=== PATIENT | female | born 1995 | race Caucasian/White ===

== ENCOUNTER 2023-04-16 19:51 | Emergency (ER) | payer MEDICAID ==
[~2023-04-16] VITALS: Ht 165.1 cm; Wt 59.0 kg
[2023-04-16] MEDS ORDERED: LEVETIRACETAM 1000MG PREMIX 100 ML IV ONE (20:15)
[2023-04-16 20:33] LABS: BASOPHILS % 0.5 % (0.0-2.0); EOSINOPHILS % 3.4 % (0.0-5.0); HEMOGLOBIN. 10.8 g/dL (12.0-16.0); LYMPHOCYTES % 21.8 % (20.0-50.0); MEAN CORPUSCULAR HEMOGLOBIN 25.5 pg (28.0-32.0); MEAN CORPUSCULAR VOLUME 80.1 fL (81.0-99.0); MONOCYTES % 6.9 % (2.0-8.0); NEUTROPHILS % 67.4 % (40.0-76.0); PLATELET 416 x1000/uL (130-400); RED BLOOD CELL COUNT 4.25 mill/uL (4.2-5.4); RED CELL DISTRIBUTION WIDTH 18.3 % (11.6-14.6)
[2023-04-16 20:36] LABS: CHLORIDE 105 mEq/L (98-107)
[2023-04-16 20:39] LABS: HCG SCREEN NEGATIVE
[2023-04-16 20:49] LABS: ETHANOL BLOOD < 10 mg/dL
[2023-04-16] MEDS ORDERED: SODIUM CHLORIDE 0.9% 1,000 ML IV ONE (21:30)
[2023-04-16] MEDS ORDERED: ACETAMINOPHEN 325MG TABLET PO ONE ×2 (21:30→23:45)
[2023-04-16] MEDS ORDERED: POTASSIUM CHLORIDE 20MEQ TABLET SR PO NR (22:30)
[2023-04-16 22:54] LABS: CLARITY URINE CLEAR (CLEAR); COLOR URINE YELLOW (YELLOW); KETONES URINE NEGATIVE (NEGATIVE); LEUKOCYTE ESTERASE URINE NEGATIVE (NEGATIVE); NITRITE URINE NEGATIVE (NEGATIVE); OCCULT BLOOD URINE NEGATIVE (NEGATIVE); PH URINE 5.5 (4.5-8.0); PROTEIN URINE NEGATIVE (NEGATIVE); SPECIFIC GRAVITY URINE 1.005 (1.005-1.030); UROBILINOGEN URINE 0.2 E.U./dL (0.2-1.0)
[2023-04-16 23:06] LABS: *AMPHETAMINES SCREEN URINE NEGATIVE (NEGATIVE); *BARBITURATES SCREEN URINE NEGATIVE (NEGATIVE); *BENZODIAZEPINES SCREEN URINE NEGATIVE (NEGATIVE); *COCAINE SCREEN URINE NEGATIVE (NEGATIVE); CANNABINOID URINE SCREEN NEGATIVE (NEGATIVE); METHADONE URINE SCREEN NEGATIVE (NEGATIVE); OPIATES URINE SCREEN NEGATIVE (NEGATIVE); PHENCYCLIDINE URINE SCREEN NEGATIVE (NEGATIVE)
[2023-04-16 23:42] VITALS: BP 123/80
[2023-04-16] MEDS ORDERED: IBUPROFEN 400MG TABLET PO ONE (23:45)
== END 2023-04-17 ==
LOC: ER 19:51
DX: R56.9 Unspecified convulsions (principal)
CPT/HCPCS: 36415; 80053; 80305; 80320; 81003; 84703; 85025; 96361; 96365; 99284; J1953; J7030; Z7610; G0480

== ENCOUNTER 2025-07-12 15:35 | Emergency (ER) | payer MEDICAID, OTHER ==
[~2025-07-12] VITALS: Ht 165.1 cm; Wt 59.9 kg
[2025-07-12 15:42] VITALS: O2SAT 98
[2025-07-12 16:15] LABS: BASOPHILS % 0.5 % (0.0-2.0); EOSINOPHILS % 1.9 % (0.0-5.0); HEMATOCRIT. 32.7 % (36.0-48.0); HEMOGLOBIN. 10.4 g/dL (12.0-16.0); LYMPHOCYTES % 21.2 % (20.0-50.0); MEAN PLATELET VOLUME 7.3 fl (7.4-10.4); MONOCYTES % 5.9 % (2.0-8.0); NEUTROPHILS % 70.5 % (40.0-76.0); PLATELET 419 x1000/uL (130-400); RED BLOOD CELL COUNT 4.32 mill/uL (4.2-5.4); RED CELL DISTRIBUTION WIDTH 19.0 % (11.6-14.6)
[2025-07-12 16:25] LABS: CREATININE 0.8 mg/dL (0.6-1.0); UREA NITROGEN BLOOD 9 mg/dL (9-23)
[2025-07-12 16:26] LABS: B-HCG QUANTITATIVE < 1 mIU/mL (<6)
[2025-07-12 16:30] LABS: INR 1.0
[2025-07-12 16:34] LABS: HCG SCREEN NEGATIVE
[2025-07-12 21:30] VITALS: BP 123/79; PULSE 80; RESP 18; TEMP 36.4; O2SAT 99
[2025-07-12 22:53] VITALS: BP 123/79; PULSE 80; RESP 18; TEMP 36.4736
[2025-07-12] MEDS ORDERED: MORPHINE SULFATE 2 MG/ML INJ (NOT FOR IM USE) IV PRN (23:30)
[2025-07-12] MEDS ORDERED: ACETAMINOPHEN 325MG TABLET PO PRN (23:30)
[2025-07-12] MEDS ORDERED: ONDANSETRON HCL 4MG/2ML INJ IV PRN (23:30)
[2025-07-12] MEDS ORDERED: MAGNESIUM/ALUMINUM HYDROXIDE/SIMETHICONE 30ML UDC PO PRN (23:30)
[2025-07-12] MEDS ORDERED: ZOLPIDEM TARTRATE 5MG TABLET PO PRN (23:30)
[2025-07-12] MEDS ORDERED: CLONIDINE 0.1MG TABLET PO PRN (23:30)
[2025-07-12] MEDS: HYDROCODONE/ACETAMINOPHEN 5/325MG TABLET PO PRN (23:59)
[2025-07-13] VITALS: BP 112/72; PULSE 68; RESP 20; TEMP 36.3; O2SAT 100
[2025-07-13 04:00] VITALS: BP 111/77; PULSE 69; RESP 18; TEMP 36.4; O2SAT 100
[2025-07-13 08:00] VITALS: BP 107/53; PULSE 72; RESP 20; TEMP 36.4; O2SAT 99
[2025-07-13] MEDS: PANTOPRAZOLE SODIUM 40 MG/VIAL IV SCH (09:00)
[2025-07-13] MEDS: ENOXAPARIN 40MG/0.4ML SYR SUBCUT SCH (09:00)
[2025-07-13 11:05] LABS: BASOPHILS % 0.8 % (0.0-2.0); EOSINOPHILS % 4.1 % (0.0-5.0); HEMATOCRIT. 32.1 % (36.0-48.0); HEMOGLOBIN. 10.2 g/dL (12.0-16.0); LYMPHOCYTES % 29.8 % (20.0-50.0); MEAN PLATELET VOLUME 7.4 fl (7.4-10.4); MONOCYTES % 8.9 % (2.0-8.0); NEUTROPHILS % 56.4 % (40.0-76.0); PLATELET 367 x1000/uL (130-400); RED BLOOD CELL COUNT 4.22 mill/uL (4.2-5.4); RED CELL DISTRIBUTION WIDTH 18.8 % (11.6-14.6)
[2025-07-13 11:27] LABS: CREATININE 0.6 mg/dL (0.6-1.0)
[2025-07-13 11:28] LABS: UREA NITROGEN BLOOD 9 mg/dL (9-23)
[2025-07-13 12:00] VITALS: BP 108/72; PULSE 78; RESP 20; TEMP 36.4; O2SAT 98
[2025-07-16] MEDS ORDERED: KEPP500 PO (01:44)
[2025-07-16] MEDS ORDERED: AMLO-905 PO (01:46)
[2025-07-17] MEDS ORDERED: FERR324T4 MT (14:23)
== END 2025-07-13 13:52 | disposition left against medical advice (07) ==
LOC: ER 15:35 → UNDOADMIN 20:08 → 6WST 20:08 → EDBEDREQ 20:09 → ENRESERV 20:27 → ER 20:47 → 6EST 07-13 05:29 → 6WST 07-13 05:29 → ER 07-13 13:52 → UNDODISIN 07-13 14:10
DX: N93.9 Abnormal uterine and vaginal bleeding, unspecified (principal); G40.909 Epilepsy, unspecified, not intractable, without status epilepticus; Z32.01 Encounter for pregnancy test, result positive; Z53.29 Procedure and treatment not carried out because of patient's decision for other reasons; Z90.49 Acquired absence of other specified parts of digestive tract
CPT/HCPCS: 99285; 76830; 76856; 80048 ×2; 84703; 84702; 85025 ×2; 85610; 85730; 86850; 86900; 86901; 36415 ×2; 85014 ×2; 85018 ×2; 96374; 82962; 96372; J1650; J2470; A4606